=== PATIENT | female | born 2000 | race Caucasian/White ===

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

== ENCOUNTER → 2020-06-16 | Outpatient (CLI) | payer OTHER ==
[~2020-06-16] MED LIST: LODINE CAP 300300 MG PO
== END ==
LOC: LAB 17:54
DX: N92.6 Irregular menstruation, unspecified (principal)
CPT/HCPCS: 84702; 84703

== ENCOUNTER 2020-09-19 18:44 | Emergency (ER) | payer OTHER ==
[2020-09-19 19:52] LABS: HEMOGLOBIN 14.1 gm/dl (12.3-15.3); RED BLOOD COUNT 4.82 M/UL (4.00-5.10); WHITE BLOOD COUNT 11.9 K/UL (4.5-11.0)
[2020-09-19 20:08] LABS: BUN/CREATININE RATIO 16 (0-10)
== END 2020-09-19 23:00 | disposition home or self-care (01) ==
LOC: ER1 18:44
PROVIDERS: Physician Assistant Medical
DX: I10 Essential (primary) hypertension (principal); Z88.0 Allergy status to penicillin
CPT/HCPCS: 80053; 81001; 84702; 85025; 99283

== ENCOUNTER 2020-10-03 06:25 | Emergency (ER) | payer OTHER ==
[2020-10-03 07:59] LABS: HEMOGLOBIN 12.8 gm/dl (12.3-15.3); RED BLOOD COUNT 4.59 M/UL (4.00-5.10)
[2020-10-03 08:29] LABS: BUN/CREATININE RATIO 15 (0-10)
== END 2020-10-03 11:23 | disposition home or self-care (01) ==
LOC: ER1 06:25
PROVIDERS: Emergency Medicine
DX: S70.11XA Contusion of right thigh, initial encounter (principal); I10 Essential (primary) hypertension; W22.8XXA Striking against or struck by other objects, initial encounter
CPT/HCPCS: 80053; 84703; 85025; 85610; 85730; 93971; 99284

== ENCOUNTER 2021-03-25 03:27 | Emergency (ER) | payer OTHER ==
[2021-03-25 04:36] LABS: RED BLOOD COUNT 4.45 M/UL (4.00-5.10); WHITE BLOOD COUNT 12.7 K/UL (4.5-11.0)
[2021-03-25 04:38] LABS: BUN/CREATININE RATIO 12 (0-10)
[2021-03-25] MEDS ORDERED: DOXYLAMINE-PYR1 EACH PO (05:32)
== END 2021-03-25 06:00 | disposition home or self-care (01) ==
LOC: ER1 03:27
PROVIDERS: Physician Assistant
DX: O21.0 Mild hyperemesis gravidarum (principal); O99.281 Endocrine, nutritional and metabolic diseases complicating pregnancy, first trimester; D64.9 Anemia, unspecified; I10 Essential (primary) hypertension; E86.0 Dehydration; Z3A.01 Less than 8 weeks gestation of pregnancy
CPT/HCPCS: 80053; 81001; 83690; 85025; 96374; 96375; 99284; J1200; J2405; J2765

== ENCOUNTER 2021-07-22 15:40 | Outpatient (CLI) | payer OTHER ==
[~2021-07-22 15:40] MED LIST changes: +DOXYLAMINE-PYR1 EACH PO
== END 2021-07-22 17:39 | disposition home or self-care (01) ==
LOC: GENOP 15:40
DX: O99.891 Other specified diseases and conditions complicating pregnancy (principal); N89.8 Other specified noninflammatory disorders of vagina; M54.9 Dorsalgia, unspecified; O36.8120 Decreased fetal movements, second trimester, not applicable or unspecified; O10.912 Unspecified pre-existing hypertension complicating pregnancy, second trimester; Z88.0 Allergy status to penicillin; Z88.1 Allergy status to other antibiotic agents; Z3A.24 24 weeks gestation of pregnancy
CPT/HCPCS: 59025; 81001

== ENCOUNTER 2021-08-12 23:37 | Outpatient (CLI) | payer OTHER | END 2021-08-13 01:34 | disposition home or self-care (01) | LOC: GENOP 23:37 | DX: O99.891 Other specified diseases and conditions complicating pregnancy (principal); N89.8 Other specified noninflammatory disorders of vagina; M54.9 Dorsalgia, unspecified; O10.912 Unspecified pre-existing hypertension complicating pregnancy, second trimester; Z88.0 Allergy status to penicillin; Z88.1 Allergy status to other antibiotic agents; Z79.899 Other long term (current) drug therapy; Z3A.27 27 weeks gestation of pregnancy | CPT/HCPCS: 83518; G0463 ==

== ENCOUNTER 2021-08-18 22:13 | Outpatient (CLI) | payer OTHER | END 2021-08-19 00:27 | disposition home or self-care (01) | LOC: GENOP 22:13 | DX: O10.913 Unspecified pre-existing hypertension complicating pregnancy, third trimester (principal); O99.891 Other specified diseases and conditions complicating pregnancy; R11.0 Nausea; R42 Dizziness and giddiness; Z88.0 Allergy status to penicillin; Z3A.28 28 weeks gestation of pregnancy | CPT/HCPCS: 81001; G0463 ==

== ENCOUNTER → 2021-09-01 | Outpatient (CLI) | payer OTHER | LOC: GENOP 15:25 | DX: O99.891 Other specified diseases and conditions complicating pregnancy (principal); N89.8 Other specified noninflammatory disorders of vagina | CPT/HCPCS: 83518; G0463 ==

== ENCOUNTER 2021-09-29 19:20 | Outpatient (CLI) | payer OTHER ==
[2021-09-29 21:02] LABS: HEMOGLOBIN 10.1 gm/dl (12.3-15.3); RED BLOOD COUNT 3.68 M/UL (4.00-5.10); WHITE BLOOD COUNT 10.7 K/UL (4.5-11.0)
[2021-09-29 21:26] LABS: BUN/CREATININE RATIO 14 (0-10)
== END 2021-09-29 22:53 | disposition home or self-care (01) ==
LOC: GENOP 19:20
PROVIDERS: Obstetrics & Gynecology
DX: Z53.9 Procedure and treatment not carried out, unspecified reason (principal)
CPT/HCPCS: 80053; 81001; 82570; 83615; 84156; 84550; 85025; 87086; G0463

== ENCOUNTER 2021-10-01 22:25 | Outpatient (CLI) | payer OTHER | END 2021-10-02 00:38 | disposition home or self-care (01) | LOC: GENOP 22:25 | DX: O47.03 False labor before 37 completed weeks of gestation, third trimester (principal); Z3A.34 34 weeks gestation of pregnancy | CPT/HCPCS: 81001 ==

== ENCOUNTER → 2021-10-19 | Outpatient (CLI) | payer OTHER ==
[~2021-10-19] MED LIST changes: +COLACE100 MG PO; +IBUPROFEN600 MG PO; +PERCOCET 5/325 T1 EA PO; +TRANDATE 100 M100 MG PO
[2021-10-19 15:23] LABS: HEMOGLOBIN 10.9 gm/dl (12.3-15.3); RED BLOOD COUNT 4.09 M/UL (4.00-5.10); WHITE BLOOD COUNT 12.7 K/UL (4.5-11.0)
== END ==
LOC: GENOP 13:24
PROVIDERS: Obstetrics & Gynecology
DX: Z01.812 Encounter for preprocedural laboratory examination (principal); O36.60X0 Maternal care for excessive fetal growth, unspecified trimester, not applicable or unspecified; Z88.0 Allergy status to penicillin; Z88.1 Allergy status to other antibiotic agents
CPT/HCPCS: 81001; 85025

== ENCOUNTER 2021-10-20 08:45 | Inpatient (IN) | payer OTHER ==
[~2021-10-20] VITALS: Ht 167.6 cm; Wt 81.6 kg
[~2021-10-20 08:45] MED LIST changes: -COLACE100 MG PO; -IBUPROFEN600 MG PO; -PERCOCET 5/325 T1 EA PO; -TRANDATE 100 M100 MG PO
[2021-10-20] MEDS ORDERED: TRANDATE 100 M100 MG PO (12:52)
[2021-10-20] MEDS ORDERED: COLACE100 MG PO (14:17)
[2021-10-20] MEDS ORDERED: IBUPROFEN600 MG PO (14:17)
[2021-10-20] MEDS ORDERED: PERCOCET 5/325 T1 EA PO (14:18)
[2021-10-22 13:37] LABS: HEMOGLOBIN 9.5 gm/dl (12.3-15.3)
[2021-10-22 14:00] LABS: BUN/CREATININE RATIO 9 (0-10)
[2021-10-22 14:02] LABS: RED BLOOD COUNT 3.56 M/UL (4.00-5.10); WHITE BLOOD COUNT 16.2 K/UL (4.5-11.0)
[2021-10-23] MEDS ORDERED: COLACE100 MG PO (11:59)
== END 2021-10-23 15:40 | disposition home or self-care (01) | DRG 787 ==
LOC: OB 09:41
PROVIDERS: Obstetrics & Gynecology; ADMIT Obstetrics & Gynecology
PROC: 3E0234Z Introduction of Serum, Toxoid and Vaccine into Muscle, Percutaneous Approach (ICD-10-PCS; 2021-10-20)
PROC: 10D00Z1 Extraction of Products of Conception, Low, Open Approach (ICD-10-PCS; principal; 2021-10-20 08:45)
DX: O36.63X0 Maternal care for excessive fetal growth, third trimester, not applicable or unspecified (principal); D62 Acute posthemorrhagic anemia; O10.92 Unspecified pre-existing hypertension complicating childbirth; O99.892 Other specified diseases and conditions complicating childbirth; G43.909 Migraine, unspecified, not intractable, without status migrainosus; O99.52 Diseases of the respiratory system complicating childbirth; J30.9 Allergic rhinitis, unspecified; O99.02 Anemia complicating childbirth; Z37.0 Single live birth; Z3A.37 37 weeks gestation of pregnancy; Z88.0 Allergy status to penicillin; Z88.1 Allergy status to other antibiotic agents; Z98.890 Other specified postprocedural states; Z28.310 Unvaccinated for COVID-19; Z82.49 Family history of ischemic heart disease and other diseases of the circulatory system; Z83.3 Family history of diabetes mellitus; Z80.8 Family history of malignant neoplasm of other organs or systems; Z23 Encounter for immunization
CPT/HCPCS: 36415; 80053; 85014; 85018; 85025; 90471; 90715; C9113; J1580; J1885; J2274; J2370; J2405; J2590; J3010